=== PATIENT | male | born 1965 | race Caucasian/White ===

== ENCOUNTER 2018-08-16 07:04 | Emergency (ER) | payer BC ==
[2018-08-16] MEDS ORDERED: Triamcinolone Acetonide 40 MG/ML 1 ML MDV INJECT ONE (07:33)
[2018-08-16] MEDS ORDERED: hydrOXYzine HCl 50 MG/ML SDV IM ONE (07:43)
--- NOTE | 2018-08-17 18:44 | EDM.PDOC ---
ED HPI GENERAL MEDICAL PROBLEM - General Chief Complaint: Allergic Reaction Stated Complaint: ALLERGIC REACTION Time Seen by Provider: 08/16/18 07:35 Source of Information: Reports: Patient History Limitations: Reports: No Limitations - History of Present Illness INITIAL COMMENTS - FREE TEXT/NARRATIVE: Presents to ER with complaints of lower lip swelling and urticaria. Pt. was started on iatroconazole yesterday for foot fungus. He states that he had also been taken benadryl but states that he doesn't normally take this, so either medication could have caused the reaction. He denies any throat tightness. No shortness of breath. No nausea of vomiting. Onset: Today Onset Date: 08/16/18 Location: Reports: Face, Generalized Severity: Moderate - Related Data Allergies Allergy/AdvReac Type Severity Reaction Status Date / Time fentanyl Allergy Rash Verified 08/16/18 07:34 morphine Allergy Rash Verified 08/16/18 07:34 Home Meds: Home Meds Itraconazole 200 mg BID 08/16/18 [History] Levothyroxine 125 mcg DAILY 08/16/18 [History] Lisinopril/Hydrochlorothiazide [Lisinopril-Hctz 10-12.5 mg Tab] 1.5 tab DAILY [History] Past Medical History Cardiovascular History: Reports: Hypertension Gastrointestinal History: Reports: Diverticulosis Endocrine/Metabolic History: Reports: Hypothyroidism - Past Surgical History GI Surgical History: Reports: Other (See Below) Other GI Surgeries/Procedures: colectomy Social & Family History - Tobacco Use Smoking Status *Q: Unknown Ever Smoked - Recreational Drug Use Recreational Drug Use: No ED ROS ALLERGIC REACTION - Review of Systems Review Of Systems: See Below Constitutional: Reports: No Symptoms HEENT: Reports: Other (lower lip swelling) Respiratory: Reports: No Symptoms Cardiovascular: Reports: No Symptoms Endocrine: Reports: No Symptoms GI/Abdominal: Reports: No Symptoms : Reports: No Symptoms Musculoskeletal: Reports: No Symptoms Skin: Reports: Pruritis, Erythema, Urticaria Neurological: Reports: No Symptoms Psychiatric: Reports: No Symptoms Hematologic/Lymphatic: Reports: No Symptoms Immunologic: Reports: No Symptoms ED EXAM GENERAL NO PERIP PULSE - Physical Exam Exam: See Below Exam Limited By: No Limitations General Appearance: Alert, WD/WN, No Apparent Distress Eye Exam: Bilateral Eye: EOMI Ears: Normal External Exam, Normal Canal, Hearing Grossly Normal, Normal TMs Nose: Normal Inspection, Normal Mucosa, No Blood Throat/Mouth: Normal Inspection, Normal Teeth, Normal Gums, Normal Oropharynx, Normal Voice, No Airway Compromise, Other (lower lip is swollen) Head: Atraumatic, Normocephalic Neck: Normal Inspection, Supple, Non-Tender, Full Range of Motion Respiratory/Chest: No Respiratory Distress, Lungs Clear, Normal Breath Sounds, No Accessory Muscle Use, Chest Non-Tender Cardiovascular: Normal Peripheral Pulses, Regular Rate, Rhythm, No Edema, No Gallop, No JVD, No Murmur, No Rub GI/Abdominal: Normal Bowel Sounds, Soft, Non-Tender, No Organomegaly, No Distention, No Abnormal Bruit, No Mass (Male) Exam: Deferred Rectal (Males) Exam: Deferred Back Exam: Normal Inspection, Full Range of Motion, NT Extremities: Normal Inspection, Normal Range of Motion, Non-Tender, Normal Capillary Refill, No Pedal Edema Neurological: Alert, Oriented, CN II-XII Intact, Normal Cognition, Normal Gait, Normal Reflexes, No Motor/Sensory Deficits Psychiatric: Normal Affect, Normal Mood Skin Exam: Other (urticaria) Lymphatic: No Adenopathy Course - Vital Signs Last Recorded V/S: Last Vital Signs Temp 36.9 C 08/16/18 07:05 Pulse 113 H 08/16/18 07:05 Resp 16 08/16/18 07:05 BP 130/86 08/16/18 07:05 Pulse Ox 95 08/16/18 07:05 - Orders/Labs/Meds Meds: Medications Discontinued Medications Generic Name Dose Route Start Last Admin Trade Name Derrek PRN Reason Stop Dose Admin Hydroxyzine HCl 50 mg 08/16/18 07:43 08/16/18 07:47 Vistaril IM 08/16/18 07:44 50 mg ONETIME ONE Administration Triamcinolone Acetonide 80 mg 08/16/18 07:33 08/16/18 07:40 Kenalog-40 INJECT 08/16/18 07:34 80 mg ONETIME ONE Administration Departure - Departure Time of Disposition: 08:15 Disposition: Home, Self-Care 01 Condition: Good Clinical Impression: Allergic reaction - Discharge Information Instructions: Allergies, Adult, [id number] Referrals: Marily Cole NP [Primary Care Provider] - Forms: ED Department Discharge Additional Instructions: Prednisone 40mg once daily Vistaril 50mg every 6 hours as needed I would discontinue your other medications at this point as it is unknown what caused the reaction Return to ER if you have increased shortness of breath, throat tightness, or other worrisome signs or symptoms. - Assessment/Plan Plan: Prednisone 40mg once daily Vistaril 50mg every 6 hours as needed I would discontinue your other medications at this point as it is unknown what caused the reaction Return to ER if you have increased shortness of breath, throat tightness, or other worrisome signs or symptoms.
== END 2018-08-16 08:15 | disposition home or self-care (01) ==
LOC: VM.ED 07:04
DX: K13.0 Diseases of lips (principal); T36.7X5A Adverse effect of antifungal antibiotics, systemically used, initial encounter; I10 Essential (primary) hypertension; Z88.5 Allergy status to narcotic agent; Z79.899 Other long term (current) drug therapy
CPT/HCPCS: 96372; 99283; J3301; J3410

== ENCOUNTER 2019-01-08 22:40 | Emergency (ER) | payer BC ==
--- NOTE | 2019-01-09 06:39 | EDM.PDOC ---
ED HPI GENERAL MEDICAL PROBLEM - General Chief Complaint: General Stated Complaint: Open surgical incision Time Seen by Provider: 01/08/19 22:45 Source of Information: Reports: Patient History Limitations: Reports: No Limitations - History of Present Illness INITIAL COMMENTS - FREE TEXT/NARRATIVE: Pt. states that he had a recent hernia operation and states that the lloyd were removed today by Dr. Martinez this afternoon. He states that he noticed that the lower portion of the surgical incision came open tonight. He states that there was some discharge from the area. Denies any fever or chills. Pt. denies any abdominal pain. He states that the surgery was performed on 12/28. Onset Date: 01/08/19 Location: Reports: Abdomen - Related Data Allergies Allergy/AdvReac Type Severity Reaction Status Date / Time fentanyl Allergy Rash Verified 01/08/19 23:05 morphine Allergy Rash Verified 01/08/19 23:05 Home Meds: Home Meds Levothyroxine 125 mcg PO DAILY 08/16/18 [History] Telmisartan 40 mg PO DAILY 01/08/19 [History] Past Medical History Cardiovascular History: Reports: Hypertension Gastrointestinal History: Reports: Diverticulosis Endocrine/Metabolic History: Reports: Hypothyroidism - Past Surgical History GI Surgical History: Reports: Other (See Below) Other GI Surgeries/Procedures: colectomy, removal of fatty turmor 12/28/18 ED ROS GENERAL - Review of Systems Review Of Systems: See Below GI/Abdominal: Reports: Other (deheisence of surgical incision.) ED EXAM, GENERAL - Physical Exam Exam: See Below GI/Abdominal: Normal Bowel Sounds, Soft, Non-Tender, No Organomegaly, No Distention, Other (small 1/1.5 cm diameter by 0.5 cm deep open area below umbilicus. Scant serosanguinous discharge noted.) Course - Vital Signs Last Recorded V/S: Last Vital Signs Temp 36.3 C 01/08/19 22:50 Pulse 79 01/08/19 22:50 Resp 16 01/08/19 22:50 BP 149/93 H 01/08/19 22:50 Pulse Ox Departure - Departure Time of Disposition: 22:00 Disposition: Home, Self-Care 01 Clinical Impression: Problem involving surgical incision - Discharge Information Instructions: How to Change Your Dressing, Wound Packing Referrals: Kelsey,Marily K, [employer] [Primary Care Provider] - Forms: ED Department Discharge Additional Instructions: pack dressing once daily as you have done in the past. Make sure to thoroughly wash your tweezers. Follow-up in clinic in 7-10 days. Return to ER/follow-up sooner if increased redness, swelling, or purulent discharge from the area. Clear discharge is to be expected. - Problem List Review Problem List Initiated/Reviewed/Updated: Yes - Assessment/Plan Plan: There does not appear to be any acute infection. Advised patient to pack the wound. This was performed in ER. He will follow-up in 10-14 days sooner if redness, swelling or discharge.
== END 2019-01-08 23:00 | disposition home or self-care (01) ==
LOC: VM.ED 22:40
DX: T81.42XA Infection following a procedure, deep incisional surgical site, initial encounter (principal); E03.9 Hypothyroidism, unspecified; I10 Essential (primary) hypertension; Z88.8 Allergy status to other drugs, medicaments and biological substances; Z79.899 Other long term (current) drug therapy; Z98.890 Other specified postprocedural states
CPT/HCPCS: 99283

== ENCOUNTER 2019-05-03 17:56 | Emergency (ER) | payer BC ==
--- NOTE | 2019-05-03 19:07 | EDM.PDOC ---
ED HPI GENERAL MEDICAL PROBLEM - General Chief Complaint: Laceration Stated Complaint: LACERATION TO R INDEX FINGER Time Seen by Provider: 05/03/19 18:45 Source of Information: Reports: Patient History Limitations: Reports: No Limitations - History of Present Illness INITIAL COMMENTS - FREE TEXT/NARRATIVE: Pt. presents to ER with complaints of laceration to L index finger. He states that he cut it trying to open a food package. Pt. states that his tetanus is up to date. No other injury reported. Onset Date: 05/03/19 Location: Reports: Upper Extremity, Right - Related Data Allergies Allergy/AdvReac Type Severity Reaction Status Date / Time fentanyl Allergy Rash Verified 05/03/19 18:30 morphine Allergy Rash Verified 05/03/19 18:30 Home Meds: Home Meds Levothyroxine 125 mcg PO DAILY 08/16/18 [History] Telmisartan 40 mg PO DAILY 01/08/19 [History] Past Medical History Cardiovascular History: Reports: Hypertension Gastrointestinal History: Reports: Diverticulosis Endocrine/Metabolic History: Reports: Hypothyroidism - Past Surgical History GI Surgical History: Reports: Other (See Below) Other GI Surgeries/Procedures: colectomy, removal of fatty turmor 12/28/18 Social & Family History - Tobacco Use Smoking Status *Q: Former Smoker Used Tobacco, but Quit: Yes Month/Year Tobacco Last Used: 2007 - Recreational Drug Use Recreational Drug Use: No ED ROS GENERAL - Review of Systems Review Of Systems: See Below Musculoskeletal: Reports: Other (laceration to pad of R index finger) ED EXAM, SKIN/RASH Exam: See Below Exam Limited By: No Limitations General Appearance: Alert, WD/WN, No Apparent Distress Extremities: Other (subcentimeter, shallow laceration to tip of R L index finger. Laceration is too shallow to suture.) Course - Re-Assessments/Exams Free Text/Narrative Re-Assessment/Exam: 05/03/19 19:09 The laceration continued to bleed. Surgicel was subsequently placed to the laceration and secured with telfa and tube gauze. It was too shallow to be sutured. Pt. was subsequently discharged. He can remove the dressing on Tuesday. Return if there is any redness, swelling, or discharge from he area. Departure - Departure Time of Disposition: 19:09 Disposition: Home, Self-Care 01 Clinical Impression: Laceration - Discharge Information Instructions: Laceration Care, Adult Referrals: Marily Cole NP [Primary Care Provider] - Forms: ED Department Discharge Additional Instructions: Keep dressing on until Tuesday. You will have to soak the finger to get the Surgicel dressing off the finger. Return if there is any redness, swelling or discharge from the laceration.
== END 2019-05-03 18:52 | disposition home or self-care (01) ==
LOC: VM.ED 17:56
DX: S61.211A Laceration without foreign body of left index finger without damage to nail, initial encounter (principal); I10 Essential (primary) hypertension; E03.9 Hypothyroidism, unspecified; Z88.5 Allergy status to narcotic agent; Z79.899 Other long term (current) drug therapy; Z87.891 Personal history of nicotine dependence; W26.0XXA Contact with knife, initial encounter
CPT/HCPCS: 99282